=== PATIENT | female | born 1955 | race African-American/Black ===

== ENCOUNTER 2018-11-05 12:00 | Inpatient (IN) | payer MEDICAID ==
[~2018-11-05] VITALS: Ht 162.6 cm; Wt 68.0 kg
[2018-11-05] MEDS ORDERED: IPRATROPIUM BROMIDE (0.02%) 0.5MG/2.5ML NEB HHN STA (12:20)
[2018-11-05] MEDS ORDERED: ALBUTEROL (0.083%) 2.5MG/3ML NEB HHN STA (12:20)
[2018-11-05] MEDS ORDERED: METHYLPREDNISOLONE SOD SUCC 125 MG/2 ML VIAL IV STA (12:20)
[2018-11-05] MEDS ORDERED: MAGNESIUM 2 G PREMIX 50 ML IV STA (12:20)
[2018-11-05 12:38] LABS: BASOPHILS % 0.5 % (0.0-2.0); EOSINOPHILS % 7.2 % (0.0-5.0); HEMATOCRIT. 37.2 % (36.0-48.0); HEMOGLOBIN. 12.4 g/dL (12.0-16.0); LYMPHOCYTES % 43.4 % (20.0-50.0); MEAN CORPUSCULAR HEMOGLOBIN 29.8 pg (28.0-32.0); MEAN CORPUSCULAR VOLUME 89.3 fL (81.0-99.0); MEAN PLATELET VOLUME 9.1 fl (7.4-10.4); MONOCYTES % 10.4 % (2.0-8.0); NEUTROPHILS % 38.5 % (40.0-76.0); PLATELET 80 x1000/uL (130-400); RED BLOOD CELL COUNT 4.16 mill/uL (4.2-5.4); RED CELL DISTRIBUTION WIDTH 14.2 % (11.6-14.6)
[2018-11-05 12:44] LABS: CHLORIDE 109 mEq/L (98-107)
[2018-11-05 12:46] LABS: INR 1.2
[2018-11-05] MEDS ORDERED: LEVOFLOXACIN 500MG PREMIX 100 ML IV ONE (13:30)
[2018-11-05 14:59] LABS: CLARITY URINE CLOUDY (CLEAR); COLOR URINE DARK YELLOW (YELLOW); KETONES URINE TRACE (NEGATIVE); LEUKOCYTE ESTERASE URINE TRACE (NEGATIVE); NITRITE URINE POSITIVE (NEGATIVE); OCCULT BLOOD URINE NEGATIVE (NEGATIVE); PH URINE 5.5 (4.5-8.0); PROTEIN URINE NEGATIVE (NEGATIVE); SPECIFIC GRAVITY URINE 1.029 (1.005-1.030)
[2018-11-05] MEDS ORDERED: IPRATROPIUM/ALBUTEROL 0.5-3(2.5)MG/3ML NEB HHN PRN (15:30)
[2018-11-05] MEDS ORDERED: ONDANSETRON HCL 4MG/2ML INJ IV PRN (15:30)
[2018-11-05] MEDS ORDERED: GUAIFENESIN-DM 200MG-20MG/10ML UDC PO PRN (15:30)
[2018-11-05] MEDS: ACETAMINOPHEN 325MG TABLET PO PRN ×2 (16:22→21:26)
[2018-11-05] MEDS ORDERED: POTASSIUM CHLORIDE 20MEQ TABLET SR PO NR (17:00)
[2018-11-05 17:05] VITALS: BP 129/81
[2018-11-05] MEDS ORDERED: FURO40TA5 MT (18:58)
[2018-11-05] MEDS ORDERED: CEFTRIAXONE 1 G PREMIX 50 ML IV SCH (19:00)
[2018-11-05 20:00] VITALS: BP 148/89
[2018-11-05] MEDS: GUAIFENESIN 600MG ER TABLET PO SCH (21:04)
[2018-11-05] MEDS: METHYLPREDNISOLONE SOD SUCC 40 MG/ML VIAL IV SCH (23:20)
[2018-11-06] VITALS (7 sets, daily range): BP systolic 101–156; BP diastolic 56–91
[2018-11-06] MEDS: IPRATROPIUM/ALBUTEROL 0.5-3(2.5)MG/3ML NEB HHN SCH ×6 (01:21→20:06)
[2018-11-06] MEDS: METHYLPREDNISOLONE SOD SUCC 40 MG/ML VIAL IV SCH ×3 (06:38→21:00)
[2018-11-06 06:49] LABS: BASOPHILS % 0.2 % (0.0-2.0); HEMATOCRIT. 36.8 % (36.0-48.0); LYMPHOCYTES % 27.7 % (20.0-50.0); MEAN CORPUSCULAR HEMOGLOBIN 29.5 pg (28.0-32.0); MEAN CORPUSCULAR VOLUME 90.3 fL (81.0-99.0); MEAN PLATELET VOLUME 9.2 fl (7.4-10.4); MONOCYTES % 3.1 % (2.0-8.0); PLATELET 70 x1000/uL (130-400); RED BLOOD CELL COUNT 4.07 mill/uL (4.2-5.4); RED CELL DISTRIBUTION WIDTH 14.2 % (11.6-14.6)
[2018-11-06 07:15] LABS: CHLORIDE 108 mEq/L (98-107)
[2018-11-06] MEDS: GUAIFENESIN 600MG ER TABLET PO SCH ×2 (08:42→20:24)
[2018-11-06] MEDS: ACETAMINOPHEN 325MG TABLET PO PRN ×2 (08:44→18:55)
[2018-11-06] MEDS ORDERED: CEFTRIAXONE 1 G PREMIX 50 ML IV SCH (19:00)
== END 2018-11-06 21:00 | disposition home or self-care (01) | DRG 139 ==
LOC: ER 12:30 → 6WST 14:18 → EDBEDREQ 14:29 → ENRESERV 15:50
PROVIDERS: ADMIT Internal Medicine; ATTEND Internal Medicine
DX: J18.0 Bronchopneumonia, unspecified organism (principal); E44.0 Moderate protein-calorie malnutrition; E87.8 Other disorders of electrolyte and fluid balance, not elsewhere classified; I11.0 Hypertensive heart disease with heart failure; I50.32 Chronic diastolic (congestive) heart failure; N39.0 Urinary tract infection, site not specified; E87.6 Hypokalemia; F17.210 Nicotine dependence, cigarettes, uncomplicated; J44.1 Chronic obstructive pulmonary disease with (acute) exacerbation; J44.0 Chronic obstructive pulmonary disease with (acute) lower respiratory infection; Z86.73 Personal history of transient ischemic attack (TIA), and cerebral infarction without residual deficits; Z71.6 Tobacco abuse counseling; Z68.25 Body mass index [BMI] 25.0-25.9, adult
CPT/HCPCS: 36415; 71045; 80048; 83036; 83605; 83880; 84145; 84484; 93005; 94640; 96374; 99285; J0696; J1956; J2405; J2920; J2930; J3475; J7050; J7611; J7620

== ENCOUNTER 2019-08-04 17:54 | Inpatient (IN) | payer MEDICARE, MEDICAID ==
[~2019-08-04] VITALS: Ht 162.6 cm; Wt 91.2 kg
[2019-08-04] MEDS ORDERED: METHYLPREDNISOLONE SOD SUCC 125 MG/2 ML VIAL IV STA (18:55)
[2019-08-04] MEDS ORDERED: MORPHINE SULFATE 4 MG/ML CPJ (NOT FOR IM USE) IV STA (18:55)
[2019-08-04] MEDS ORDERED: ONDANSETRON HCL 4MG/2ML INJ IV STA (18:55)
[2019-08-04] MEDS ORDERED: LEVOFLOXACIN 500MG PREMIX 100 ML IV ONE (19:00)
[2019-08-04] MEDS ORDERED: ASPIRIN 81MG TABLET PO ONE (19:00)
[2019-08-04] MEDS ORDERED: FUROSEMIDE 40MG/4ML VIAL IV ONE (19:00)
[2019-08-04] MEDS ORDERED: IPRATROPIUM/ALBUTEROL 0.5-3(2.5)MG/3ML NEB HHN ONE (19:00)
[2019-08-04 19:24] LABS: CHLORIDE 110 mEq/L (98-107)
[2019-08-04 19:29] LABS: ETHANOL BLOOD < 10 mg/dL
[2019-08-04 19:50] LABS: BASOPHILS % 0.4 % (0.0-2.0); EOSINOPHILS % 2.7 % (0.0-5.0); HEMATOCRIT. 34.6 % (36.0-48.0); HEMOGLOBIN. 11.7 g/dL (12.0-16.0); MEAN CORPUSCULAR VOLUME 97.7 fL (81.0-99.0); MEAN PLATELET VOLUME 9.1 fl (7.4-10.4); MONOCYTES % 8.9 % (2.0-8.0); PLATELET 69 x1000/uL (130-400); RED BLOOD CELL COUNT 3.54 mill/uL (4.2-5.4); RED CELL DISTRIBUTION WIDTH 15.4 % (11.6-14.6)
[2019-08-04 21:16] LABS: BG BASE EXCESS 0.4 mmol/L (-2.0-2.0); BG DEOXYHEMOGLOBIN 17.6 % (0.0-5.0); BG FRACTION INSPIRED OXYGEN 21; BG HCO3 ACT 26.4 mmol/L (22.0-26.0); BG OXYGEN SATURATION 82.2 % (92.0-98.5); BG OXYHEMOGLOBIN 81.4 % (94.0-97.0); BG PCO2 48.4 mmHg (35.0-45.0); BG PH 7.354 (7.350-7.450); BG PO2 49.8 mmHg (75.0-100.0); BG SAMPLE SITE RIGHT RADIAL; BG TOTAL HEMOGLOBIN 11.9 g/dL (12.0-18.0); BG VENT MODE ROOM AIR
[2019-08-05 04:55] VITALS: BP 129/53
[2019-08-05 05:14] VITALS: BP 129/53
[2019-08-05] MEDS ORDERED: AMLO2.5T45 PO (05:43)
[2019-08-05] MEDS ORDERED: FURO-151 PO (05:43)
[2019-08-05] MEDS ORDERED: BENA5TAB6 PO (05:46)
[2019-08-05] MEDS ORDERED: IPRATROPIUM/ALBUTEROL 0.5-3(2.5)MG/3ML NEB HHN PRN (06:00)
[2019-08-05] MEDS: ACETAMINOPHEN 325MG TABLET PO PRN ×2 (06:13→21:01)
[2019-08-05] MEDS ORDERED: ATROV IH (06:53)
[2019-08-05] MEDS ORDERED: PREDNISONE 20MG TABLET PO SCH (07:15)
[2019-08-05 08:00] VITALS: BP 114/57
[2019-08-05] MEDS ORDERED: MORPHINE SULFATE 2 MG/ML CPJ (NOT FOR IM USE) IV PRN (08:15)
[2019-08-05] MEDS: FLUTICASONE PROPIONATE 50MCG/SPRAY BOTTLE BOTHNSTRLS SCH ×2 (08:35→20:14)
[2019-08-05] MEDS: METHYLPREDNISOLONE SOD SUCC 40 MG/ML VIAL IV SCH ×3 (08:35→21:21)
[2019-08-05] MEDS: BENAZEPRIL 10MG TABLET PO SCH (08:36)
[2019-08-05] MEDS: ASPIRIN 81MG TABLET PO SCH (08:36)
[2019-08-05] MEDS: AMLODIPINE 10MG TABLET PO SCH (08:36)
[2019-08-05] MEDS ORDERED: ENOXAPARIN 40MG/0.4ML SYR SUBCUT SCH (09:00)
[2019-08-05 12:00] VITALS: BP 120/69
[2019-08-05] MEDS: IPRATROPIUM/ALBUTEROL 0.5-3(2.5)MG/3ML NEB HHN SCH ×3 (12:45→20:37)
[2019-08-05 14:52] LABS: CLARITY URINE CLEAR (CLEAR); COLOR URINE DARK YELLOW (YELLOW); KETONES URINE NEGATIVE (NEGATIVE); LEUKOCYTE ESTERASE URINE NEGATIVE (NEGATIVE); NITRITE URINE POSITIVE (NEGATIVE); OCCULT BLOOD URINE NEGATIVE (NEGATIVE); PH URINE 5.5 (4.5-8.0); PROTEIN URINE NEGATIVE (NEGATIVE); SPECIFIC GRAVITY URINE 1.023 (1.005-1.030)
[2019-08-05 15:13] LABS: *AMPHETAMINES SCREEN URINE NEGATIVE (NEGATIVE); *BARBITURATES SCREEN URINE NEGATIVE (NEGATIVE); *BENZODIAZEPINES SCREEN URINE NEGATIVE (NEGATIVE); CANNABINOID URINE SCREEN NEGATIVE (NEGATIVE); PHENCYCLIDINE URINE SCREEN NEGATIVE (NEGATIVE)
[2019-08-05 15:14] LABS: *COCAINE SCREEN URINE NEGATIVE (NEGATIVE); METHADONE URINE SCREEN NEGATIVE (NEGATIVE)
[2019-08-05 16:00] VITALS: BP 104/44
[2019-08-05 20:00] VITALS: BP 111/47
[2019-08-05] MEDS: GUAIFENESIN 600MG ER TABLET PO SCH (20:14)
[2019-08-05] MEDS: LEVOFLOXACIN 500MG PREMIX 100 ML IV SCH (20:14)
[2019-08-06] VITALS (7 sets, daily range): BP systolic 93–148; BP diastolic 47–86
[2019-08-06] MEDS: IPRATROPIUM/ALBUTEROL 0.5-3(2.5)MG/3ML NEB HHN SCH ×3 (00:39→20:43)
[2019-08-06] MEDS: METHYLPREDNISOLONE SOD SUCC 40 MG/ML VIAL IV SCH ×3 (05:15→21:25)
[2019-08-06 06:29] LABS: CHLORIDE 105 mEq/L (98-107)
[2019-08-06] MEDS: AMLODIPINE 10MG TABLET PO SCH (08:34)
[2019-08-06] MEDS: BENAZEPRIL 10MG TABLET PO SCH (08:34)
[2019-08-06] MEDS: ASPIRIN 81MG TABLET PO SCH (08:41)
[2019-08-06] MEDS: ACETAMINOPHEN 325MG TABLET PO PRN ×2 (08:41→21:25)
[2019-08-06] MEDS: GUAIFENESIN 600MG ER TABLET PO SCH ×2 (08:41→20:40)
[2019-08-06] MEDS: FLUTICASONE PROPIONATE 50MCG/SPRAY BOTTLE BOTHNSTRLS SCH ×2 (08:41→20:40)
[2019-08-06 09:07] LABS: BASOPHILS % 0.1 % (0.0-2.0); HEMATOCRIT. 34.9 % (36.0-48.0); HEMOGLOBIN. 11.4 g/dL (12.0-16.0); LYMPHOCYTES % 23.2 % (20.0-50.0); MEAN CORPUSCULAR HEMOGLOBIN 31.5 pg (28.0-32.0); MEAN CORPUSCULAR VOLUME 96.1 fL (81.0-99.0); MEAN PLATELET VOLUME 8.9 fl (7.4-10.4); MONOCYTES % 3.8 % (2.0-8.0); NEUTROPHILS % 72.9 % (40.0-76.0); PLATELET 63 x1000/uL (130-400); RED BLOOD CELL COUNT 3.63 mill/uL (4.2-5.4); RED CELL DISTRIBUTION WIDTH 15.3 % (11.6-14.6)
[2019-08-06] MEDS: LEVOFLOXACIN 500MG PREMIX 100 ML IV SCH (20:40)
[2019-08-07] VITALS: BP 112/67
[2019-08-07] MEDS: IPRATROPIUM/ALBUTEROL 0.5-3(2.5)MG/3ML NEB HHN SCH ×5 (00:28→20:59)
[2019-08-07 04:00] VITALS: BP 132/72
[2019-08-07] MEDS: METHYLPREDNISOLONE SOD SUCC 40 MG/ML VIAL IV SCH ×3 (06:05→21:22)
[2019-08-07 08:00] VITALS: BP 116/62
[2019-08-07] MEDS: AMLODIPINE 10MG TABLET PO SCH (08:12)
[2019-08-07] MEDS: ASPIRIN 81MG TABLET PO SCH (08:12)
[2019-08-07] MEDS: BENAZEPRIL 10MG TABLET PO SCH (08:12)
[2019-08-07] MEDS: FLUTICASONE PROPIONATE 50MCG/SPRAY BOTTLE BOTHNSTRLS SCH ×2 (08:12→20:48)
[2019-08-07] MEDS: GUAIFENESIN 600MG ER TABLET PO SCH ×2 (08:12→20:48)
[2019-08-07 12:00] VITALS: BP 115/72
[2019-08-07 16:00] VITALS: BP 105/60
[2019-08-07] MEDS: ACETAMINOPHEN 325MG TABLET PO PRN (17:31)
[2019-08-07 20:00] VITALS: BP 131/76
[2019-08-07] MEDS: LEVOFLOXACIN 500MG TABLET PO SCH (20:48)
[2019-08-08] VITALS (7 sets, daily range): BP systolic 103–141; BP diastolic 51–69
[2019-08-08] MEDS: IPRATROPIUM/ALBUTEROL 0.5-3(2.5)MG/3ML NEB HHN SCH ×6 (00:31→22:02)
[2019-08-08] MEDS: METHYLPREDNISOLONE SOD SUCC 40 MG/ML VIAL IV SCH (05:51)
[2019-08-08] MEDS: AMLODIPINE 10MG TABLET PO SCH (09:00)
[2019-08-08] MEDS: BENAZEPRIL 10MG TABLET PO SCH (09:00)
[2019-08-08] MEDS: ASPIRIN 81MG TABLET PO SCH (09:15)
[2019-08-08] MEDS: ACETAMINOPHEN 325MG TABLET PO PRN ×2 (09:15→21:42)
[2019-08-08] MEDS: GUAIFENESIN 600MG ER TABLET PO SCH ×2 (09:15→21:41)
[2019-08-08] MEDS: FLUTICASONE PROPIONATE 50MCG/SPRAY BOTTLE BOTHNSTRLS SCH (09:16)
[2019-08-08] MEDS ORDERED: IPRA3AMP9 NEB (14:01)
[2019-08-08] MEDS ORDERED: FLUT1DIS3 INH (14:01)
[2019-08-08 15:06] LABS: BG BASE EXCESS 1.6 mmol/L (-2.0-2.0); BG CARBOXYHEMOGLOBIN 0.4 % (0.5-1.5); BG FRACTION INSPIRED OXYGEN 21; BG HCO3 ACT 26.1 mmol/L (22.0-26.0); BG METHEMOGLOBIN 0.2 % (0.0-1.5); BG OXYHEMOGLOBIN 96.4 % (94.0-97.0); BG PCO2 40.5 mmHg (35.0-45.0); BG PH 7.427 (7.350-7.450); BG PO2 87.9 mmHg (75.0-100.0); BG SAMPLE SITE RIGHT BRACHIAL; BG TOTAL HEMOGLOBIN 13.4 g/dL (12.0-18.0); BG VENT MODE ROOM AIR
[2019-08-08] MEDS: FUROSEMIDE 40MG/4ML VIAL IVP SCH (15:17)
[2019-08-08 16:43] LABS: OPIATES URINE SCREEN PRESUMTIVE POSITIVE (NEGATIVE)
[2019-08-08] MEDS: PREDNISONE 20MG TABLET PO SCH (17:22)
[2019-08-08] MEDS: LEVOFLOXACIN 500MG TABLET PO SCH (21:41)
[2019-08-09] VITALS: BP 122/62
[2019-08-09] MEDS: IPRATROPIUM/ALBUTEROL 0.5-3(2.5)MG/3ML NEB HHN SCH ×4 (01:46→12:17)
[2019-08-09 04:00] VITALS: BP 115/56
[2019-08-09 08:00] VITALS: BP 119/57
[2019-08-09] MEDS: PREDNISONE 20MG TABLET PO SCH (08:18)
[2019-08-09] MEDS: FUROSEMIDE 40MG/4ML VIAL IVP SCH (08:19)
[2019-08-09] MEDS: GUAIFENESIN 600MG ER TABLET PO SCH (08:19)
[2019-08-09] MEDS: AMLODIPINE 10MG TABLET PO SCH (08:20)
[2019-08-09] MEDS: ASPIRIN 81MG TABLET PO SCH (08:20)
[2019-08-09] MEDS: BENAZEPRIL 10MG TABLET PO SCH (08:21)
[2019-08-09 12:00] VITALS: BP 120/72
[2019-08-09] MEDS: ACETAMINOPHEN 325MG TABLET PO PRN (15:44)
[2019-08-09 16:00] VITALS: BP 128/68
[2019-08-10] MEDS ORDERED: PREDNISONE 20MG TABLET PO SCH (09:00)
== END 2019-08-09 20:21 | disposition home or self-care (01) | DRG 720 ==
LOC: ER 17:54 → 5WST 22:49 → EDBEDREQ 22:52 → EDBEDREQTM 22:52 → ENRESERV 08-05 03:52
PROVIDERS: ADMIT Internal Medicine; ATTEND Internal Medicine
DX: A41.9 Sepsis, unspecified organism (principal); J96.01 Acute respiratory failure with hypoxia; E43 Unspecified severe protein-calorie malnutrition; D69.6 Thrombocytopenia, unspecified; E87.8 Other disorders of electrolyte and fluid balance, not elsewhere classified; I11.0 Hypertensive heart disease with heart failure; I50.32 Chronic diastolic (congestive) heart failure; J44.1 Chronic obstructive pulmonary disease with (acute) exacerbation; B19.20 Unspecified viral hepatitis C without hepatic coma; F17.210 Nicotine dependence, cigarettes, uncomplicated; F14.90 Cocaine use, unspecified, uncomplicated; Z80.9 Family history of malignant neoplasm, unspecified; Z71.6 Tobacco abuse counseling; Z86.73 Personal history of transient ischemic attack (TIA), and cerebral infarction without residual deficits; Z68.34 Body mass index [BMI] 34.0-34.9, adult
CPT/HCPCS: 36415; 36600; 71045; 78582; 80048; 80053; 80305; 80320; 81003; 82375; 82805; 83605; 83880; 84484; 85025; 85379; 87015; 87045; 87427; 87449; 87804; 93005; 93306; 93970; 94618; 94640; 99285; A9558; J1940; J1956; J2270; J2405; J2920; J2930; J7512; G0480

== ENCOUNTER 2020-04-12 20:18 | Inpatient (IN) | payer MEDICARE, MEDICAID ==
[2020-04-11 07:45] VITALS: BP 125/67
[~2020-04-12] VITALS: Ht 162.6 cm; Wt 83.5 kg
[~2020-04-12 20:18] MED LIST: AMLO2.5T45 PO; ATROV IH; BENA5TAB6 PO; FLUT1DIS3 INH; FURO-151 PO; IPRA3AMP9 NEB
[2020-04-12 21:46] LABS: CHLORIDE 109 mEq/L (98-107)
[2020-04-12 21:48] LABS: BASOPHILS % 1.3 % (0.0-2.0); EOSINOPHILS % 4.8 % (0.0-5.0); HEMATOCRIT. 34.5 % (36.0-48.0); HEMOGLOBIN. 11.4 g/dL (12.0-16.0); LYMPHOCYTES % 45.7 % (20.0-50.0); MEAN CORPUSCULAR HEMOGLOBIN 31.8 pg (28.0-32.0); MEAN CORPUSCULAR VOLUME 95.8 fL (81.0-99.0); MEAN PLATELET VOLUME 9.3 fl (7.4-10.4); MONOCYTES % 13.3 % (2.0-8.0); NEUTROPHILS % 34.9 % (40.0-76.0); PLATELET 59 x1000/uL (130-400); RED CELL DISTRIBUTION WIDTH 15.1 % (11.6-14.6)
[2020-04-13] MEDS ORDERED: IPRATROPIUM BROMIDE (0.02%) 0.5MG/2.5ML NEB HHN STA (00:47)
[2020-04-13] MEDS ORDERED: METHYLPREDNISOLONE SOD SUCC 125 MG/2 ML VIAL IV ONE (01:00)
[2020-04-13 07:45] VITALS: BP 125/67
[2020-04-13 12:00] VITALS: BP 125/63
[2020-04-13] MEDS ORDERED: ONDANSETRON HCL 4MG/2ML INJ IV PRN (12:00)
[2020-04-13] MEDS: ACETAMINOPHEN 325MG TABLET PO PRN ×2 (12:23→19:58)
[2020-04-13] MEDS ORDERED: TRAMADOL 50MG TABLET PO PRN (15:00)
[2020-04-13 16:00] VITALS: BP 122/62
[2020-04-13] MEDS: IPRATROPIUM/ALBUTEROL 0.5-3(2.5)MG/3ML NEB HHN PRN (17:20)
[2020-04-13] MEDS ORDERED: IOHEXOL-350 100 ML BOTTLE ONE (23:20)
[2020-04-14] VITALS: BP 121/55
[2020-04-14] MEDS: IPRATROPIUM/ALBUTEROL 0.5-3(2.5)MG/3ML NEB HHN PRN ×3 (01:59→20:34)
[2020-04-14 04:00] VITALS: BP 112/66
[2020-04-14 08:00] VITALS: BP 104/97
[2020-04-14 12:00] VITALS: BP 112/59
[2020-04-14 13:30] LABS: BG BASE EXCESS 5.8 mmol/L (-2.0-2.0); BG CARBOXYHEMOGLOBIN 0.1 % (0.5-1.5); BG DEOXYHEMOGLOBIN 1.5 % (0.0-5.0); BG HCO3 ACT 32.7 mmol/L (22.0-26.0); BG METHEMOGLOBIN 0.3 % (0.0-1.5); BG OXYGEN SATURATION 98.5 % (92.0-98.5); BG OXYHEMOGLOBIN 98.1 % (94.0-97.0); BG PCO2 59.5 mmHg (35.0-45.0); BG PH 7.358 (7.350-7.450); BG PO2 129.2 mmHg (75.0-100.0); BG SAMPLE SITE RIGHT RADIAL; BG TOTAL HEMOGLOBIN 11.7 g/dL (12.0-18.0); BG VENT MODE NASAL CANNULA
[2020-04-14] MEDS: FUROSEMIDE 40MG/4ML VIAL IVP SCH (13:44)
[2020-04-14 16:00] VITALS: BP 119/76
[2020-04-14 20:00] VITALS: BP 105/56
[2020-04-15] MEDS: IPRATROPIUM/ALBUTEROL 0.5-3(2.5)MG/3ML NEB HHN PRN ×4 (00:55→15:51)
[2020-04-15 04:00] VITALS: BP_SYST 101; BP_SYST 92; BP_DIAS 47; BP_DIAS 56
[2020-04-15 08:00] VITALS: BP 106/61
[2020-04-15] MEDS: FUROSEMIDE 40MG/4ML VIAL IVP SCH (08:58)
[2020-04-15] MEDS: ACETAMINOPHEN 325MG TABLET PO PRN (09:07)
[2020-04-15 12:00] VITALS: BP 119/63
[2020-04-15 16:23] VITALS: BP 119/63
== END 2020-04-15 17:25 | disposition home or self-care (01) | DRG 194 ==
LOC: ER 20:18 → 7EST 04-13 02:35 → ENRESERV 04-13 04:56 → CANRESERV 04-13 04:56 → ENRESERV 04-13 07:17 → ER 04-13 07:35 → 8WST 04-13 16:40
PROVIDERS: ADMIT Internal Medicine; ATTEND Internal Medicine
DX: I11.0 Hypertensive heart disease with heart failure (principal); I50.33 Acute on chronic diastolic (congestive) heart failure; J44.9 Chronic obstructive pulmonary disease, unspecified; F17.210 Nicotine dependence, cigarettes, uncomplicated; Z20.828 Contact with and (suspected) exposure to other viral communicable diseases; E43 Unspecified severe protein-calorie malnutrition; E87.8 Other disorders of electrolyte and fluid balance, not elsewhere classified; R74.01 Elevation of levels of liver transaminase levels; D61.818 Other pancytopenia; Z79.84 Long term (current) use of oral hypoglycemic drugs; Z82.49 Family history of ischemic heart disease and other diseases of the circulatory system; Z86.73 Personal history of transient ischemic attack (TIA), and cerebral infarction without residual deficits; Z71.6 Tobacco abuse counseling; R51.9 Headache, unspecified; J96.01 Acute respiratory failure with hypoxia
CPT/HCPCS: 36415; 36600; 71045; 71275; 80053; 82140; 82375; 82805; 83880; 84484; 85025; 85379; 87635; 93005; 94640; 97162; 99285; J1940; J2930; Q9967